=== PATIENT | female | born 1970 ===

== ENCOUNTER → 2022-01-08 | Outpatient (CLI) | payer OTHER | LOC: HEART 5 13:17 | DX: R06.00 Dyspnea, unspecified (principal) | CPT/HCPCS: 94060; 94729 ==

== ENCOUNTER → 2022-01-08 | Outpatient (CLI) | payer OTHER | LOC: RAD 12-29 09:30 | DX: R13.10 Dysphagia, unspecified (principal) | CPT/HCPCS: 74230; 92611-GN ==